=== PATIENT | female | born 1975 | race Hispanic/Latino ===

== ENCOUNTER 2017-07-18 12:56 | Emergency (ER) | payer BC, OTHER | END 2017-07-18 14:07 | disposition home or self-care (01) | LOC: EDH 12:56 | DX: F41.1 Generalized anxiety disorder (principal); F45.8 Other somatoform disorders | CPT/HCPCS: 99281 ==

== ENCOUNTER 2019-12-05 02:12 | Emergency (ER) | payer BC | END 2019-12-05 02:30 | disposition home or self-care (01) | LOC: EDH 02:12 | DX: Z02.83 Encounter for blood-alcohol and blood-drug test (principal) ==

== ENCOUNTER 2020-02-22 23:27 | Emergency (ER) | payer BC, OTHER ==
[2020-02-22] MEDS ORDERED: KETOROLAC TROMETHAMINE 60 MG/2 ML VIAL ONE (23:43)
== END 2020-02-23 | disposition home or self-care (01) ==
LOC: EDH 23:27
DX: K08.89 Other specified disorders of teeth and supporting structures (principal)
CPT/HCPCS: 96372; 99283; J1885

== ENCOUNTER 2023-11-17 18:43 | Emergency (ER) | payer OTHER ==
[~2023-11-17] VITALS: Ht 157.5 cm; Wt 108.9 kg
[2023-11-17 18:44] VITALS: BP 171/80; PULSE 90; RESP 16
[2023-11-17] MEDS ORDERED: DEXAMETHASONE SOD PHOSPHATE 4 MG/ML 1ML VIAL IM STA (19:51)
[2023-11-17] MEDS ORDERED: SOLU-MEDROL 125MG VIAL IM ONE (20:00)
[2023-11-18] MEDS ORDERED: SOLU-MEDROL 125MG VIAL ONE (00:03)
[2023-11-18] MEDS ORDERED: DEXAMETHASONE SOD PHOSPHATE 4 MG/ML 1ML VIAL ONE (00:04)
== END 2023-11-18 00:33 | disposition left against medical advice (07) ==
LOC: EDH 18:43
DX: R21 Rash and other nonspecific skin eruption (principal)
CPT/HCPCS: 99281; J1100; J2919